=== PATIENT | female | born 1960 | race Caucasian/White ===

== ENCOUNTER 2017-05-16 12:55 | Emergency (ER) | payer MEDICAID, OTHER, SELFPAY ==
[2017-05-16 12:56] VITALS: BMI 29.0
[2017-05-16] MEDS ORDERED: Fluorescein 1 mg Ophthalmic Strip ONE (13:22)
--- NOTE | 2017-05-16 13:55 | C.PDOC ---
History Of Present Illness 56 y/o female, history of asthma and hernia, presents to ED with c/o leg pain for 2 weeks. Patient states pain is sometimes in her knee and sometimes in her thigh, noting her legs sometimes "feel heavy". Notes pain worsens with movement. Patient also c/o right lower back pain and left shoulder pain, also worse with movement. Patient reports dysuria and frequency for 2 days. Denies fevers, chills, body aches, incontinence, saddle anaesthesia. Time Seen by Provider: 05/16/17 13:14 Chief Complaint (Nursing): Lower Extremity Problem/Injury History Per: Patient History/Exam Limitations: no limitations Onset/Duration Of Symptoms: Days Current Symptoms Are (Timing): Still Present Recent travel outside of the [place]: No Past Medical History Reviewed: Historical Data, Nursing Documentation, Vital Signs Vital Signs: Last Vital Signs Temp 97.8 F 05/16/17 13:09 Pulse 83 05/16/17 13:09 Resp 16 05/16/17 13:09 BP 167/88 H 05/16/17 13:09 Pulse Ox 97 05/16/17 14:01 - Medical History PMH: Asthma, Diabetes, HTN, Hypercholesterolemia - [facility] Procedures COLONOSCOPY (10/05/13) OTHER ENDOSCOPY OF SM INTEST (04/15/13) Family History: States: Unknown Family Hx - Social History Hx Tobacco Use: No Hx Alcohol Use: No Hx Substance Use: No - Immunization History Hx Tetanus Toxoid Vaccination: Yes Hx Influenza Vaccination: No Hx Pneumococcal Vaccination: No Review Of Systems Except As Marked, All Systems Reviewed And Found Negative. Constitutional: Negative for: Fever, Chills, Malaise Cardiovascular: Negative for: Chest Pain, Palpitations Respiratory: Negative for: Cough, Shortness of Breath Gastrointestinal: Negative for: Nausea, Vomiting Genitourinary: Positive for: Dysuria, Frequency Musculoskeletal: Positive for: Shoulder Pain (Left), Leg Pain (BL) Skin: Negative for: Rash Neurological: Negative for: Weakness, Numbness Physical Exam - Physical Exam Appears: Non-toxic, No Acute Distress Skin: Normal Color, Warm, Dry Head: Atraumatic, Normacephalic Chest: Symmetrical Cardiovascular: Rhythm Regular, No Murmur Respiratory: Normal Breath Sounds, No Rales, No Rhonchi, No Wheezing Gastrointestinal/Abdominal: Soft, No Tenderness, No Guarding, No Rebound Back: No CVA Tenderness, Paraspinal Tenderness (R lumbar paraspinal tenderness. No left paralumbar tenderness. ) Extremity: Normal ROM, Tenderness (right buttock, left thigh, left knee ), Capillary Refill (< 2 sec.), No Deformity, No Swelling Extremity: Bilateral: Normal Color And Temperature Pulses: Left Dorsalis Pedis: Normal, Right Dorsalis Pedis: Normal Neurological/Psych: Oriented x3, Normal Speech, Normal Cognition, Normal Motor, Normal Sensation ED Course And Treatment O2 Sat by Pulse Oximetry: 97 (RA) Pulse Ox Interpretation: Normal Medical Decision Making Medical Decision Makin56 y/o female with multiple complaints: leg pain, right lower back pain, left shoulder pain, dysuria and frequency Differential Diagnosis: musculoskeletal, sciatica vs. DVT, secondary complaint: UTI Plan: * Toradol * D-dimer * Urinalysis * Reassess, dispo Progress: UA negative. Dimer negative. Symptoms are most consistant with musculoskeletal. Advised patient to take motrin prn pain and to follow up with primary care doctor. Disposition Counseled Patient/Family Regarding: Diagnosis, Need For Followup, Rx Given - Disposition Referrals: at [facility] [Outside] Disposition: HOME/ ROUTINE Disposition Time: 14:52 Condition: IMPROVED Additional Instructions: Ms Rai, thank you for letting us take care of you today. Your provider was Dr. Cosby. You were treated for Sciatica, Leg and Knee Strain, Shoulder Strain. The emergency medical care you received today was directed at your acute symptoms. If you were prescribed any medication, please fill it and take as directed. It may take several days for your symptoms to resolve. Return to the Emergency Department if your symptoms worsen, do not improve, or if you have any other problems. Please contact your doctor or call one of the physicians/clinics you have been referred to that are listed on the Patient Visit Information form that is included in your discharge packet. Bring any paperwork you were given at discharge with you along with any medications you are taking to your follow up visit. Our treatment cannot replace ongoing medical care by a primary care provider (PCP) outside of the emergency department. Thank you for allowing the [facility] team to be part of your care today. If you had an X-Ray or CT scan: A Radiologist will review the ED reading if any change in treatment is needed we will contact you. If you had a blood, urine, or wound culture: It will take several days for the results, if any change in treatment is needed we will contact you. If you had an STI test: It will take 48 hours for the results. Please call after 1 week if you have not heard back. Prescriptions: Ibuprofen [Motrin] 600 mg PO Q6 PRN #30 tab PRN Reason: Pain, Moderate (4-7) Instructions: Muscle Strain (ED), Sciatica (ED) Forms: General Discharge Instructions - POA Present On Arrival: None - Clinical Impression Clinical Impression: Muscle strain, Sciatica - Scribe Statement The provider has reviewed the documentation as recorded by the Jacques Vann Provider Attestation: All medical record entries made by the Jacques were at my direction and personally dictated by me. I have reviewed the chart and agree that the record accurately reflects my personal performance of the history, physical exam, medical decision making, and the department course for this patient. I have also personally directed, reviewed, and agree with the discharge instructions and disposition.
[2017-05-16 14:37] LABS: SQUAMOUS EPITHIAL < 1 /hpf (0-5); URINE BILIRUBIN NEGATIVE (NEGATIVE); URINE BLOOD NEGATIVE (NEGATIVE); URINE CLARITY Clear (Clear); URINE COLOR Straw (YELLOW); URINE GLUCOSE (UA) NORMAL (Normal); URINE LEUKOCYTE ESTERASE NEG Leu/uL (Negative); URINE NITRATE NEGATIVE (NEGATIVE); URINE PROTEIN NEGATIVE (NEGATIVE); URINE UROBILINOGEN NORMAL mg/dL (0.2-1.0)
[2017-05-16 14:57] VITALS: BP 172/84; PULSE 68; RESP 20; TEMP 97.9; O2SAT 98
== END 2017-05-16 15:03 | disposition home or self-care (01) ==
LOC: C.ER 12:55
DX: M54.42 Lumbago with sciatica, left side (principal); M54.41 Lumbago with sciatica, right side; S76.912A Strain of unspecified muscles, fascia and tendons at thigh level, left thigh, initial encounter; S76.911A Strain of unspecified muscles, fascia and tendons at thigh level, right thigh, initial encounter; X58.XXXA Exposure to other specified factors, initial encounter; Y92.9 Unspecified place or not applicable
CPT/HCPCS: 81001; 85378; 96372; 99283; J1885

== ENCOUNTER 2018-05-11 14:29 | Emergency (ER) | payer MEDICAID ==
[2018-05-11 14:30] VITALS: BMI 29.0
[2018-05-11 14:51] VITALS: TEMP 98.2
[2018-05-11] MEDS ORDERED: Albuterol-Ipratrop 3 mg / 0.5 (3 ml) UD INH STA (15:45)
[2018-05-11] MEDS ORDERED: Albuterol-Ipratrop 3 mg / 0.5 (3 ml) UD ONE (16:03)
[2018-05-11 16:28] VITALS: RESP 18
--- NOTE | 2018-05-11 16:38 | C.PDOC ---
History Of Present Illness 57-year-old female, presents to the emergency department with complaints of chest pain developed suddenly during an argument with her son. Pt states she felt chest discomfort, and exacerbation of her asthma, while she was yelling. Notes a bookshelf was knocked over and hit the top of her left foot. She denies any nausea/vomiting, neck/arm pain, back pain or any other associated symptoms. no other complaints at this time. Time Seen by Provider: 05/11/18 15:41 Chief Complaint (Nursing): Shortness Of Breath History Per: Patient History/Exam Limitations: no limitations Onset/Duration Of Symptoms: Other (prior to arrival) Current Symptoms Are (Timing): Still Present Past Medical History Reviewed: Historical Data, Nursing Documentation, Vital Signs Vital Signs: Last Vital Signs Temp 98.2 F 05/11/18 17:20 Pulse 70 05/11/18 17:20 Resp 18 05/11/18 17:20 BP 145/81 05/11/18 17:20 Pulse Ox 97 05/11/18 17:20 - Medical History PMH: Asthma, Diabetes, GERD, HTN, Hypercholesterolemia - [facility] Procedures COLONOSCOPY (10/05/13) OTHER ENDOSCOPY OF SM INTEST (04/15/13) Family History: States: No Known Family Hx - Social History Hx Tobacco Use: No Hx Alcohol Use: No Hx Substance Use: No - Immunization History Hx Tetanus Toxoid Vaccination: Yes Hx Influenza Vaccination: No Hx Pneumococcal Vaccination: No Review Of Systems Constitutional: Negative for: Fever, Chills Cardiovascular: Positive for: Chest Pain Respiratory: Positive for: Shortness of Breath, Wheezing Gastrointestinal: Negative for: Nausea, Vomiting, Abdominal Pain Musculoskeletal: Positive for: Foot Pain. Negative for: Arm Pain, Back Pain Neurological: Negative for: Weakness, Numbness, Headache, Dizziness Physical Exam - Physical Exam Appears: Non-toxic, No Acute Distress Skin: Normal Color, Warm, Dry, No Rash Head: Atraumatic, Normacephalic Eye(s): bilateral: Normal Inspection, PERRL, EOMI Nose: Normal Oral Mucosa: Moist Lips: Normal Appearing Neck: Normal ROM Chest: Symmetrical Cardiovascular: Rhythm Regular, No Murmur Respiratory: No Accessory Muscle Use, Wheezing (scant, mild expiratory) Gastrointestinal/Abdominal: Normal Exam Extremity: No Deformity, Other (superficial laceration to dorsum of left foot) Pulses: Left Dorsalis Pedis: Normal, Right Dorsalis Pedis: Normal Neurological/Psych: Oriented x3, Normal Speech ED Course And Treatment ECG: Interpreted By Me, Viewed By Me ECG Rhythm: Sinus Rhythm ECG Interpretation: No Acute Changes Rate From EC O2 Sat by Pulse Oximetry: 98 (RA) Pulse Ox Interpretation: Normal - Other Rad XR ANKLE X-Ray: Viewed By Me, Read By Radiologist Interpretation: Accession No. : [id number]. Patient Name / ID : MAGNUS CARRILLO / [id number]. Exam Date : 05/11/2018 16:54:28 ( Approved ). Study Comment : Sex / Age : F / 57Y. Creator : Isabelle Garcia. Dictator : David Nunez MD. Dumbwaiter Operator : Student Union Consultant : David Nunez MD. Approver2 : Report Date : 05/11/2018 17:04:34. My Comment : . Date of service: 05/11/2018. PROCEDURE: Left Ankle Radiographs. HISTORY: r/o fracture. COMPARISON: None. FINDINGS: BONES: No acute fracture. JOINTS: Ankle mortise maintained. Talar dome intact. SOFT TISSUES: Normal. OTHER FINDINGS: Tiny inferior plantar calcaneal spur. IMPRESSION: No demonstrated fracture or dislocation. Medical Decision Making Medical Decision Making: GERD and anxiety exacerbation after arguement with family EKG normal Pepcid and Maalox for GERD prednisone and duoneb for mild asthma superficial contusion L ankle area, normal EKG wound cleaned and bandaged. Disposition Doctor Will See Patient In The: Office Counseled Patient/Family Regarding: Studies Performed, Diagnosis - Disposition Referrals: Jose Neff MD [Medical Doctor] - Disposition: HOME/ ROUTINE Disposition Time: 17:06 Condition: GOOD Additional Instructions: normal evaluation today follow-up with Dr. Neff as needed Instructions: Asthma in Adults, Acid Reflux (Gastroesophageal Reflux Disease), Adult (DC), Contusion (DC) Forms: [facility] (U[place]ayan) - Clinical Impression Clinical Impression: Contusion, SOB (shortness of breath), Chest discomfort - Scribe Statement The provider has reviewed the documentation as recorded by the Scribe (Mary Haile) All medical record entries made by the Scribe were at my direction and personally dictated by me. I have reviewed the chart and agree that the record accurately reflects my personal performance of the history, physical exam, medical decision making, and the department course for this patient. I have also personally directed, reviewed, and agree with the discharge instructions and disposition.
[2018-05-11] MEDS ORDERED: Aluminum Hydroxide/Magnesium Hydroxide Susp (30 mL) PO ONE (16:39)
[2018-05-11] MEDS ORDERED: Aluminum Hydroxide/Magnesium Hydroxide Susp (30 mL) ONE (16:44)
--- NOTE | 2018-05-11 17:09 | RAD ---
Date of service: 05/11/2018 PROCEDURE: Left Ankle Radiographs. HISTORY: r/o fracture COMPARISON: None FINDINGS: BONES: No acute fracture. JOINTS: Ankle mortise maintained. Talar dome intact SOFT TISSUES: Normal. OTHER FINDINGS: Tiny inferior plantar calcaneal spur. IMPRESSION: No demonstrated fracture or dislocation.
[2018-05-11 17:37] VITALS: BP 145/81; PULSE 70
[2018-05-11 18:44] VITALS: O2SAT 98
--- NOTE | 2018-05-13 12:23 | CARD ---
APPROVED REPORT Date of service: 05/11/2018 EKG Measurement Heart [id number] <Conclusion> Normal sinus rhythm Nonspecific T wave abnormality Abnormal ECG
== END 2018-05-11 17:20 | disposition home or self-care (01) ==
LOC: C.ER 14:29
DX: R07.9 Chest pain, unspecified (principal); R06.02 Shortness of breath; S90.02XA Contusion of left ankle, initial encounter; W22.8XXA Striking against or struck by other objects, initial encounter; Y92.89 Other specified places as the place of occurrence of the external cause; I10 Essential (primary) hypertension; E78.00 Pure hypercholesterolemia, unspecified; E11.9 Type 2 diabetes mellitus without complications